=== PATIENT | male | born 1975 | race Caucasian/White ===

== ENCOUNTER 2017-04-08 14:41 | Emergency (ER) | payer OTHER ==
[2017-04-08 14:46] VITALS: BP 150/104; PULSE 88; RESP 14; TEMP 98.4; O2SAT 97
[2017-04-08] MEDS ORDERED: TDAP ADULT 0.5 ML INJ (BOOSTRIX) IM ONE (15:46)
--- NOTE | 2017-04-08 16:12 | EDPHY ---
H & P Time Seen by Provider: 04/08/17 15:19 HPI/ROS: CHIEF COMPLAINT: Puncture wound right hand, possible retained foreign body HISTORY OF PRESENT ILLNESS: 41-year-old male presents to the emergency department with pain in his right hand. The patient was at work and thinks that he has a retained piece of wood in his hand. He states he pulled out a little piece of it however he does not feel that he got the entire piece out. He is right-hand dominant. He is unsure of his last tetanus shot. ROS: Denies numbness or tingling in his fingers, pain in his right wrist. Past Medical/Surgical History: Negative Social History: Single Smoking Status: Never smoked Physical Exam: Examination reveals less than 1 cm puncture wound to the palmar aspect of the right hand overlying webspace between thumb and index finger and overlying thenar eminence. No active bleeding noted. Full range of motion of his right thumb. Normal sensation to light touch with normal 2 point discrimination. Strong radial pulse at the right wrist. Unable to visualize retained foreign body. Unable to palpate retained foreign body. Constitutional: Initial Vital Signs Temperature (C) 36.9 C 04/08/17 14:44 Heart Rate 88 04/08/17 14:44 Respiratory Rate 14 04/08/17 14:44 Blood Pressure 150/104 H 04/08/17 14:44 O2 Sat (%) 97 04/08/17 14:44 O2 Delivery Mode Room Air Allergies/Adverse Reactions: No Known Allergies Allergy (Unverified 04/08/17 14:44) Home Medications: Medication Instructions Recorded Cephalexin [Keflex] 500 mg PO QID #28 cap 04/08/17 MDM/Departure - MDM Imaging Results: Imaging Impressions Hand X-Ray 04/08/17 14:57 Impression: No radiopaque foreign body identified. Imaging: I viewed and interpreted images myself Medications Given: Discontinued Medications Diphtheria/Tetanus/Acell Pertussis (Boostrix) 0.5 ml IM .ONCE ONE Stop: 04/08/17 15:47 Last Admin: 04/08/17 15:52 Dose: 0.5 ml ED Course/Re-evaluation: 41-year-old male presents to the emergency department possible retained wooden foreign body in his right hand. X-rays reveal no radiopaque foreign body. After consent was obtained I placed a small amount of 1% lidocaine with epinephrine into the wound and incised the puncture wound to make this a bit larger. This was thoroughly explored and unable to visualize or palpate the retained foreign body. I spoke with the on-call hand surgeon physician assistant engineer working with Dr. Josep Mercado and they will see this patient in follow-up this week. They recommended dressing the wound, starting on antibiotics and they will see him in follow-up. They will also decide if he possibly needs MRI for further imaging if the foreign bodies not visualized on exam. This was discussed with the patient verbalized understanding and agreed. Patient's tetanus shot was updated. - Depart Disposition: Home, Routine, Self-Care Clinical Impression: Retained foreign body in soft tissue Condition: Good Instructions: Soft Tissue Foreign Body (ED), Acute Wounds (ED) Additional Instructions: Your tetanus shot was updated in the emergency department. Keflex 500 mg 4 times daily for 1 week to prevent infection. Call to arrange follow-up appointment with hand surgeon on-call this week. Prescriptions: Cephalexin [Keflex] 500 mg PO QID #28 cap Referrals: Josep Mercado MD [Medical Doctor] - 1 day without fail (Hand surgeon on-call)
== END 2017-04-08 16:35 | disposition home or self-care (01) ==
PROC: 0JCJ0ZZ Extirpation of Matter from Right Hand Subcutaneous Tissue and Fascia, Open Approach (ICD-10-PCS; principal; 2017-04-08)
DX: S60.551A Superficial foreign body of right hand, initial encounter (principal); Z23 Encounter for immunization; W45.8XXA Other foreign body or object entering through skin, initial encounter; Y92.69 Other specified industrial and construction area as the place of occurrence of the external cause; Y99.0 Civilian activity done for income or pay; Y93.89 Activity, other specified

== ENCOUNTER 2017-04-14 10:15 | Day surgery (SDC) | payer OTHER ==
--- NOTE | 2017-04-11 17:25 | GHP ---
[f rep st] PREOP HISTORY AND PHYSICAL DATE OF ADMISSION: 04/14/2017 DATE OF PLANNED PROCEDURE: 04/14/2017. PREOPERATIVE DIAGNOSIS: Foreign body right hand. PLANNED PROCEDURE: Incision and drainage and foreign body removal right hand. 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 He attempted to get this out himself. He was unsuccessful. He came to the emergency department. They also attempted to remove this and could not. He was re ferred to my office and decision made to proceed to the operating room for formal I and D and foreig n body removal. PRIOR MEDICAL HISTORY: None. PRIOR SURGICAL HISTORY: None. MEDICATIONS: Keflex. SOCIAL HISTORY: He smokes half a pack per day. Occasional alcohol use. 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 REVIEW OF SYSTEMS: Unremarkable. PHYSICAL EXAM: VITAL SIGNS: He is 5 feet 3 inches tall, weighs 228 pounds. Blood pressure is 136/ 82, heart rate is 86, respiratory rate is 14 on room air. GENERAL: He is alert and oriented x3. H EENT: Normocephalic, atraumatic. Extraocular muscles are intact. NECK: Supple. There is no lymp hadenopathy. No JVD. CHEST: Clear to auscultation. CARDIOVASCULAR: Regular rate and rhythm. AB DOMEN: Soft, nontender, nondistended. RIGHT HAND: Shows a laceration over the palmar surface of t he thenar eminence. No erythema, drainage or redness. No other signs of infection. He is able to move all the joints normally in the hand. IMAGING: X-rays of his hand on one of the lateral views, you can see the foreign body, it measures about 2.7 cm long. ASSESSMENT: Retained foreign body right hand. PLAN: We will proceed to the operating room for formal I and D. We explained to the patient if we cannot get this out in the operating room we can do this under a [place] block. We will need to extend the incision, wash it out, continue antibiotics postoperatively. He understands this. Plan on friday at the hospital. /[id number]/MODL
--- NOTE | 2017-04-14 10:14 | PDANEPAE ---
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 ANE Past Medical History - Cardiovascular History Hx Hypertension: No Hx Arrhythmias: No Hx Chest Pain: No Hx Coronary Artery / Peripheral Vascular Disease: No Hx CHF / Valvular Disease: No Hx Palpitations: No - Pulmonary History Hx COPD: No Hx Asthma/Reactive Airway Disease: No Hx Recent Upper Respiratory Infection: No Hx Oxygen in Use at Home: No Hx Sleep Apnea: No Sleep Apnea Screening Result - Last Documented: Negative - Neurologic History Hx Cerebrovascular Accident: No Hx Seizures: No Hx Dementia: No - Endocrine History Hx Diabetes: No - Renal History Hx Renal Disorders: No - Liver History Hx Hepatic Disorders: No - Neurological & Psychiatric Hx Hx Neurological and Psychiatric Disorders: No - Cancer History Hx Cancer: No - Congenital Disorder History Hx Congenital Disorders: No - GI History Hx Gastrointestinal Disorders: No - Other Health History Other Health History: wood splinter R hand - Chronic Pain History Chronic Pain: No - Surgical History Prior Surgeries: R knee open (patella) age 21 ANE Review of Systems Review of Systems: No URI/fever x2 weeks. - Exercise capacity METS (RN): 5 METS ANE Patient History - Allergies Allergies/Adverse Reactions: No Known Allergies Allergy (Verified 04/11/17 16:36) - Home Medications Home medications: home medication list seen and reviewed, over the counter medications & supplements Home Medications: IBUPROFEN 04/11/17 [Last Taken Unknown] - Anes Hx Anes Hx: no prior problems - Smoking Hx Smoking Status: Current every day smoker (1/2 pack per day) - Alcohol Use Alcohol Use: Occasionally ANE Labs/Vital Signs - Vital Signs Height: 193.04 cm Weight: 102.512 kg ANE Physical Exam - Airway Neck exam: FROM Mallampati Score: Class 2 Mouth exam: normal dental/mouth exam - Pulmonary Pulmonary: clear to auscultation - Cardiovascular Cardiovascular: regular rate and rhythym - ASA Status ASA Status: II ANE Anesthesia Plan Regional Anesthesia: [place] block
[~2017-04-14 10:15] MED LIST: BACITRACIN 50,000 UNITS/10 ML SYR IRR ONE; POLYMYXIN B SULFATE 500,000 UNIT/10 ML SYR IRR ONE
[2017-04-14] MEDS ORDERED: ceFAZolin 2 GM/DEXTROSE 100 ML IV ONE (10:24)
[2017-04-14] MEDS ORDERED: LIDOCAINE 1% 2 ML INJ ID PRN (10:25)
[2017-04-14] MEDS ORDERED: LR 1,000 ML IV ONE (10:25)
[2017-04-14] MEDS ORDERED: MIDAZOLAM 2 MG/2 ML VIAL IVP ONE (10:38)
--- NOTE | 2017-04-14 11:27 | PDHPUP ---
History & Physical Update H&P update statement: This history and physical update is based on an assessment of the patient which was completed after admission or registration (within 24 hours), but prior to the surgery/procedure. H&P update: H&P reviewed & patient examined, no change in patient's condition since H&P completed
[2017-04-14] MEDS ORDERED: fentaNYL 100 MCG/2 ML INJ ONE (11:58)
[2017-04-14] MEDS ORDERED: LIDOCAINE 0.5% 50 ML SDV ONE (11:58)
[2017-04-14] MEDS ORDERED: DEXAMETHASONE 4 MG/ML VIAL ONE (11:58)
[2017-04-14] MEDS ORDERED: PROPOFOL/EMULSION 500 MG/50 ML BOTTLE IV ONE (12:00)
[2017-04-14] MEDS ORDERED: BUPIVACAINE 0.5% 30 ML SDV ONE (12:03)
[2017-04-14] MEDS ORDERED: ONDANSETRON 4 MG/2 ML VIAL IVP PRN (12:27)
[2017-04-14] MEDS ORDERED: HYDROCODONE/APAP 5/325 TAB PO PRN (12:27)
[2017-04-14] MEDS ORDERED: NALOXONE HCL 0.4 MG/ML INJ IVP PRN (12:27)
[2017-04-14] MEDS ORDERED: fentaNYL 100 MCG/2 ML INJ IVP PRN (12:27)
[2017-04-14] MEDS ORDERED: DEXAMETHASONE 4 MG/ML VIAL IVP PRN (12:27)
[2017-04-14] MEDS ORDERED: ACETAMINOPHEN 500 MG TAB PO PRN (12:27)
[2017-04-14] MEDS ORDERED: LR 500 ML IV PRN (12:27)
--- NOTE | 2017-04-14 12:38 | POSTANESTH ---
Post Anesthetic Evaluation Cardiovascular Status: Normal, Stable Respiratory Status: Normal, Stable Level of Consciousness/Mental Status: Can Participate in Eval, Alert and Oriented Pain Control: Adequate, Prn Tx Ordered Nausea/Vomiting Control: Adequate, Prn Tx Ordered Complications Possibly Related to Anesthesia: None Noted
[2017-04-14 13:33] VITALS: O2SAT 96
[2017-04-14 13:50] VITALS: RESP 16
[2017-04-14 14:37] VITALS: BP 104/79; PULSE 61; TEMP 97.5
--- NOTE | 2017-04-14 23:30 | GOP ---
[f rep st] OPERATIVE REPORT DATE OF OPERATION: 04/14/2017 SURGEON: Josep Mercado MD ANESTHESIA: Dr. Yuen, Jong block. PREOPERATIVE DIAGNOSIS: Foreign body, right thumb. POSTOPERATIVE DIAGNOSIS: PROCEDURE PERFORMED: Foreign body removal, right thumb. 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 This was attempted to be removed in the emergency department last week, it was unsuccess ful and the decision was made to proceed with a formal irrigation and debridement and foreign body r emoval in the operating room. DESCRIPTION OF PROCEDURE: After appropriate informed consent was obtained, the patient was taken to the operating room, placed supine on the operative table. Time-out was performed where the patient was identified, correct site was identified. He had currently been on Keflex; we gave him an addit ional dose of Ancef 2 g prior to being taken back to the operating room. Dr. Yuen administered a [place] block. After the limb had been exsanguinated, total tourniquet time was 12 minutes. He had a previous incision where the emergency room had attempted to remove this. I extended the in cision slightly, and the foreign body was easily identified. It was removed in 2 pieces, 1 larger a nd 1 smaller. I irrigated the wound. I explored the rest of the wound, did not see any other forei gn bodies retained. I irrigated the wound a 2nd time with normal saline. The wound was then loosel y closed with 3-0 nylon in interrupted fashion. I instilled 10 mL of 5% Marcaine plain around the i ncision. A soft sterile dressing was applied. Patient was awakened from anesthesia, taken to the r ecovery room in satisfactory condition. There were no immediate intraoperative complications. TOTAL TOURNIQUET TIME: 12 minutes. COMPLICATIONS: None. DRAINS: None. /[id number]/MODL
== END 2017-04-14 14:25 | disposition home or self-care (01) ==
LOC: FSGY 10:15
PROVIDERS: ATTEND Orthopaedic Surgery
PROC: 0JCJ0ZZ Extirpation of Matter from Right Hand Subcutaneous Tissue and Fascia, Open Approach (ICD-10-PCS; principal; 2017-04-14 11:45)
DX: M79.5 Residual foreign body in soft tissue (principal); F17.210 Nicotine dependence, cigarettes, uncomplicated
CPT/HCPCS: J0690; J1100; J2250; J2704; J3010